=== PATIENT | female | born 1985 | race Asian ===

== ENCOUNTER 2019-06-20 17:03 | Emergency (ER) | payer SELFPAY ==
[~2019-06-20] VITALS: Ht 149.9 cm; Wt 52.6 kg
--- NOTE | 2019-06-20 17:10 | NUR ---
ED Nurse Note: Patient brought in by ambulance RA 25 from home because of dizziness and feeling weak after drinking "eucaplyptus oil for skin care" Per EMS, patient vomited after drinking the oil. patient reports she only had 1 gulp of oil. patient is alert awake x4 breathing unlabored and even. patient on a shelter monitor.
[2019-06-20 17:30] VITALS: BP 108/71
--- NOTE | 2019-06-20 17:30 | NUR ---
ED Nurse Note: by the bedside
--- NOTE | 2019-06-20 17:34 | NUR ---
ED Nurse Note: DR. Cross by the bedside explaining to the patient the need for IV placement and lab draw.
--- NOTE | 2019-06-20 18:00 | NUR ---
ED Nurse Note: patient refused to get IV line despite RN/ MD education. notified DR. Cross. Urine sent to lab.
--- NOTE | 2019-06-20 18:24 | NUR ---
ED Nurse Note: patient is drinking water, tolerating,
--- NOTE | 2019-06-20 19:04 | NUR ---
HAND-OFF: Report given to Padmini ORTIZ. patient stable in bed.
--- NOTE | 2019-06-20 19:10 | NUR ---
ER DISCHARGE NOTE: Report received from DIANA Benito. Pt refused all Tx at this time. Pt signed AMA form. wrist band is removed from pt. Pt walked out of ED with steady gait, took all of her belongins.
[2019-06-20 19:11] VITALS: BP 108/70
--- NOTE | 2019-06-21 21:27 | Emergency Room Report ---
History of Present Illness General Chief Complaint: General Complaint Source: Patient Present Illness HPI . 34-year-old female presents ED for evaluation. Brought in by EMS for dizziness and nausea and vomiting. States that today she drank eucalyptus oil. States it is normally used for aromatherapy but she has been drinking oils lately for therapy. Admittedly after drinking the oil she felt nauseous and dizzy and threw up. Denies SI or HI. Denies any abdominal pain. Denies any diarrhea. No other aggravating relieving factors. Denies any other associated symptoms Allergies: Coded Allergies: No Known Allergies (Unverified , 06/20/19) Patient History Past Medical History: none Past Surgical History: none Pertinent Family History: none Social History: Denies: smoking, alcohol use, drug use Last Menstrual Period: 06/06/2019 Now: No Immunizations: UTD Reviewed Nursing Documentation: PMH: Agreed; PSxH: Agreed Nursing Documentation-PMH Past Medical History: No Stated History Review of Systems All Other Systems: negative except mentioned in HPI Physical Exam Vital Signs Date Time Temp Pulse Resp B/P (MAP) Pulse Ox O2 Delivery O2 Flow Rate FiO2 06/20/19 17:04 99.0 100 20 119/72 (88) 100 Room Air Sp02 EP Interpretation: reviewed, normal General Appearance: no apparent distress, alert, GCS 15, non-toxic Head: normocephalic, atraumatic Eyes: bilateral eye normal inspection, bilateral eye PERRL ENT: hearing grossly normal, normal pharynx, no angioedema, normal voice Neck: full range of motion, supple/symm/no masses Respiratory: chest non-tender, lungs clear, normal breath sounds, speaking full sentences Cardiovascular #1: regular rate, rhythm, no edema Cardiovascular #2: 2+ carotid (R), 2+ carotid (L), 2+ radial (R), 2+ radial (L) , 2+ dorsalis pedis (R), 2+ dorsalis pedis (L) Gastrointestinal: normal bowel sounds, non tender, soft, non-distended, no guarding, no rebound Rectal: deferred Genitourinary: normal inspection, no CVA tenderness Musculoskeletal: back normal, gait/station normal, normal range of motion, non- tender Neurologic: alert, oriented x3, responsive, motor strength/tone normal, sensory intact, speech normal Psychiatric: judgement/insight normal, memory normal, mood/affect normal, no suicidal/homicidal ideation Reflexes: 3+ bicep (R), 3+ bicep (L), 3+ tricep (R), 3+ tricep (L), 3+ knee (R) , 3+ knee (L) Lymphatic: no adenopathy Medical Decision Making Diagnostic Impression: Primary Impression: dizziness ER Course Hospital Course 34-year-old female presents ED easiness, vomiting after drinking eucalyptus oil differential diagnosis: gastritis, SBO, cholecystits Clinical course Patient placed on stretcher. On hospital liaison. After initial history and physical I ordered labs, IV fluids, Zofran and pepcid Patient declined IV access and lab draw. States that she is afraid of needles. States she is feeling better. Nevertheless I encourage patient to allow for some testing and IV access for IV fluids and antiemetics. Patient declined. Patient drank this oil by accident. There is no intent for self-harm. Patient provided to the patient. Patient states she wishes to go home. Understands the risks of leaving. Patient has competency to make her own decisions. Signed AMA form. I feel this is a highly complex case requiring extensive working including EKG/ Rhythm strip, Xray/CT/US, Blood/urine lab work, repeat exams while in ED, and administration of strong opiates/narcotics for pain control, admission to hospital or close patient follow up. Diagnosis - dizziness patient left AMA Labs Test 06/20/19 17:56 Urine HCG, Qualitative Negative (NEGATIVE) Last Vital Signs Date Time Temp Pulse Resp B/P (MAP) Pulse Ox O2 Delivery O2 Flow Rate FiO2 06/20/19 19:11 98.0 71 19 108/70 98 Room Air Status: unchanged Disposition: AGAINST MEDICAL ADVICE Condition: Stable Referrals: NOT CHOSEN IPA/,REFERRING (PCP) Cristopher Cross MD Jun 21, 2019 21:27
== END 2019-06-20 19:15 | disposition left against medical advice (07) ==
LOC: EDBD 17:03 → EMR 18:55
DX: R42 Dizziness and giddiness (principal); R11.2 Nausea with vomiting, unspecified
CPT/HCPCS: 81025; 99282